=== PATIENT | female | born 1995 | race Caucasian/White ===

== ENCOUNTER 2017-08-03 20:20 | Day surgery (SDC) | payer OTHER ==
--- NOTE | 2017-08-03 21:28 | PDOC.LDHP ---
Labor and Delivery H&P Chief complaint: contractions HPI: 21 y/o at 38w4d, patient of Dr. Gera Fabian, presents with contractions every 20 mins for the last few hours. Denies VB, LOF. +FM but less than usual. ROS neg for HEENT, CV, pulm, GI, , neuro, psych, skin, musculoskeletal, or constitutional symptoms other than mentioned above. Due date: 08/13/17 OB History Details: Blighted ovum Current complications: none Past Medical History: None Current medications: pre- vitamins Previous surgical history: none Allergies/Adverse Reactions: Allergies Allergy/AdvReac Type Severity Reaction Status Date / Time No Known Allergies Allergy Verified 05/09/17 19:53 Social history: none - Physical Exam General: NAD, resting Lungs: nonlabored breathing Abdomen: gravid Extremeties: no edema FHT: category 1 (130s, mod variability, + accels, no decels) [place] contractions every: None - Vaginal Exam cm dilated: 0 Effacement: 0% Station: -3 - Assessment 21 y/o at 38w4d with no e/o active labor. status reassuring with reactive NST. - Plan -: D/c home with precautions. Advised to keep all appointments.
== END 2017-08-03 21:05 | disposition home or self-care (01) ==
LOC: L&D/OP 20:20
PROVIDERS: ATTEND Family Medicine
DX: O47.1 False labor at or after 37 completed weeks of gestation (principal); Z3A.38 38 weeks gestation of pregnancy; Z79.82 Long term (current) use of aspirin; Z79.899 Other long term (current) drug therapy

== ENCOUNTER → 2017-08-06 | Day surgery (SDC) | payer OTHER ==
[~2017-08-06] MED LIST: FLU VACC QS2017-18 36 mo. & older 0.5 ML SYRINGE IM ONE
[2017-08-06 23:58] VITALS: BMI 25.0
[2017-08-07 00:27] LABS: Amnisure Test No Membranes Rupture (No Rupture)
--- NOTE | 2017-08-07 00:41 | PDOC.EVN ---
Event Note - Event Note Event Note: L&D Triage Patient of Gera PENAA 39 weeks HPI: 21 yo at 39 weeks with possible leakage, small amount. No gush of fluid, no VB. Good FM. Hx of "Thalassemia minor. Review of Systems: complete and neg except as per HPI Past medical: Thal minor Surgical History: neg Ob History: Social History: neg X3 Physical: Vitals stable, afebrile NAD Abd soft, NT no evidence ROM grossly Amnisure negative CX: /-2; BOW palpable Monitors: NST Cat 1, few irregular ctx on tcoc Assessment: Threatened labor at term Plan: 1. no evidence ROM 2. is negative 3. Exam negative 4. OK for outpatient care
== END | disposition home or self-care (01) ==
LOC: L&D/OP 23:26
PROVIDERS: ATTEND Family Medicine
DX: O47.1 False labor at or after 37 completed weeks of gestation (principal); Z79.899 Other long term (current) drug therapy; Z3A.39 39 weeks gestation of pregnancy
CPT/HCPCS: 84112; 99283

== ENCOUNTER 2017-08-20 12:01 | Inpatient (IN) | payer OTHER ==
[~2017-08-20 12:01] MED LIST changes: +Bupivacaine/Epinephrine 0.25% 30 ML VIAL ONE; -FLU VACC QS2017-18 36 mo. & older 0.5 ML SYRINGE IM ONE
[2017-08-20 12:23] VITALS: BMI 25.7
[2017-08-20] MEDS: Lactated Ringer's 1,000 ML IV SCH ×2 (12:53→17:01)
[2017-08-20] MEDS ORDERED: Promethazine HCl 25 MG/ML VIAL IM PRN ×3 (13:35→23:11)
[2017-08-20] MEDS ORDERED: HYDROcodone/Acetaminophen 5/325 mg Tablet PO PRN (13:35)
[2017-08-20] MEDS ORDERED: Lidocaine 1% (PF) 30 ML VIAL SC PRN (13:35)
[2017-08-20] MEDS ORDERED: Ondansetron HCl/PF 4 MG/2 ML Vial IVP PRN ×4 (13:35→23:12)
[2017-08-20] MEDS ORDERED: Misoprostol 200 MCG TAB PR PRN (13:35)
[2017-08-20] MEDS ORDERED: LR / Pitocin 40 units/1000 ml 1,000 ML IV PRN (13:35)
[2017-08-20] MEDS ORDERED: Acetaminophen 500 MG TAB PO PRN (13:35)
[2017-08-20] MEDS ORDERED: Penicillin G Potassium 5 MILL.UNITS VIAL ONE (13:39)
[2017-08-20] MEDS ORDERED: LR 500 ML/Oxytocin 10 units 500 ML IV SCH (13:45)
[2017-08-20] MEDS ORDERED: Penicillin G Potassium 5 MILL.UNITS in Sodium Chloride 0.9% 100 ML IVPB SCH (13:45)
[2017-08-20 13:55] LABS: Hemoglobin 10.3 g/dL (12.0-16.0); Mean Corpuscular HGB CONC 33.2 g/dL (32.0-36.0); Mean Corpuscular Hemoglobin 20.5 pg (25.0-35.0); Mean Corpuscular Volume 61.9 fl (77.0-87.0); Mean Platelet Volume 9.6 fL (7.4-10.4); Platelet Count 268 thou/uL (130-400); RBC Distribution Width 14.2 % (11.5-14.5); Red Blood Cell (RBC) Count 5.03 mill/uL (4.00-5.20); White Blood Cell (WBC) Count 16.4 thou/uL (4.8-10.8)
[2017-08-20 14:20] LABS: HBSAg Index 0.39 S/CO (0-0.99); Hep B Surf Ag Non-Reactive S/CO (NonReactive); Syphilis Antibody Nonreactive (Nonreactive); Syphilis Antibody Index 0.05 S/CO (<1.00 Non-Reactive)
[2017-08-20] MEDS ORDERED: Fentanyl 4 mcg/Marc 0.1% Cadd 100 ML ONE (18:15)
[2017-08-20] MEDS: Penicillin G 2.5 MILL.units 2.5 MILL.UNITS in Premix Bag 1 BAG IVPB SCH (18:40)
[2017-08-20] MEDS ORDERED: diphenhydrAMINE 50 MG/ML VIAL IVP PRN ×2 (19:36→23:11)
[2017-08-20] MEDS ORDERED: Lactated Ringer's 500 ML IV PRN (19:36)
[2017-08-20] MEDS ORDERED: Acetaminophen 325 MG TAB PO PRN (19:36)
[2017-08-20] MEDS ORDERED: Naloxone HCl 0.4 mg/ml Vial IVP PRN ×4 (19:36→23:11)
[2017-08-20] MEDS ORDERED: Eucerin (Mineral Oil/Petrolatum,White) 30 gm Jar TOP PRN ×2 (19:36→23:11)
[2017-08-20] MEDS ORDERED: Communication Order-Pharmacy FS SCH ×2 (19:45→23:15)
[2017-08-20] MEDS ORDERED: Fentanyl 4mcg/Marcaine 0.1% Cassette 100 ML EPIDURAL SCH (19:45)
[2017-08-20] MEDS ORDERED: Bicitra 30 ML UDCUP ONE (22:29)
[2017-08-20] MEDS ORDERED: CEFAZOLIN/Water 2 GM/20 ML SYRINGE ONE (22:30)
[2017-08-20] MEDS ORDERED: Lidocaine 2% PF 5 ML VIAL ONE (22:32)
[2017-08-20] MEDS ORDERED: Morphine PF 1 MG/ML SYR ONE (22:32)
[2017-08-20] MEDS ORDERED: Oxytocin 10 UNITS/ML VIAL ONE (22:32)
[2017-08-20] MEDS ORDERED: Ketorolac Tromethamine 30 MG/ML VIAL IVP PRN (23:11)
[2017-08-20] MEDS ORDERED: Promethazine HCl 25 MG SUPP PR PRN (23:11)
[2017-08-20] MEDS ORDERED: Naloxone HCl 0.4 mg/ml Vial IV PRN (23:11)
[2017-08-20] MEDS ORDERED: Meperidine HCl/PF 25 MG/ML VIAL SLOW IVP PRN (23:12)
[2017-08-20] MEDS ORDERED: Ketorolac Tromethamine 30 MG/ML VIAL IVP SCH (23:15)
[2017-08-20] MEDS ORDERED: Bupivacaine/Epinephrine 0.5% 10 ML VIAL ONE (23:16)
[2017-08-20 23:24] LABS: Base Excess (BEa) -3.2 mEq/L (0 (+/-) 2.5)
--- NOTE | 2017-08-20 23:25 | PDOC.EVN ---
Event Note - Event Note Event Note: CS Assist note: I was asked by Dr Higginbotham to assist him with a primary CS for persistent Class 2 FHRT and abnormal labor curve. I assisted with a primary LTCS via pfannestiel. BENNY in use. Apgras were 8 and 9. Gas and placenta sent for med staining. NICU present. No complications. Marcaine instilled onto the wound (10ml pour) due to patient discomfort at fascial closure. Macario O retractor used for CS. Start at 2259 (approx) End at 2317 (approx) Primary Surgeon: Neftaly, Jonathan Ren. Primary LTCS Complications: none Counts correct
--- NOTE | 2017-08-21 00:02 | OP ---
PREOPERATIVE DIAGNOSES: 1. A 41-week intrauterine . 2. Failure to progress. 3. Meconium. 4. Nonreassuring heart tones. POSTOPERATIVE DIAGNOSES: 1. A 41-week intrauterine . 2. Failure to progress. 3. Meconium. 4. Nonreassuring heart tones. 5. Occiput posterior. PROCEDURE: Primary low transverse section. ANESTHESIA: Epidural. PROCEDURE: This is a 21-year-old white female, , was taken to the operating room. Placed in th e supine position. The abdomen prepped and draped sterilely, Pfannenstiel incision was made. Subcut aneous was dissected down to fascia. Fascia was opened without incident. Peritoneum was opened by b angel dissection. Macario O ring was placed. A low transverse uterine incision was made. Moderate me conium fluid was noted. Baby did breathe and cry vigorously upon delivery. Delivered placenta, 3-ve ssel intact spontaneously. The baby's cord was clamped and cut. Cord gases were obtained. Benjamin team was present. Repaired the uterus in 1 layer of #1 Monocryl. Hemostasis was adequate. Abdomen was evacuated of all clots. The Macario O was removed. Repaired the peritoneum with 2-0 chromic. Repair ed the fascia with 0 Vicryl and the skin with nolan. Estimated blood loss was 600 mL. Mother and baby did very well.
[2017-08-21] MEDS ORDERED: Methylergonovine 0.2 MG/ML VIAL IM PRN (02:01)
[2017-08-21] MEDS ORDERED: Adacel (T-DAP) 0.5 ML VIAL IM ONE (02:01)
[2017-08-21] MEDS ORDERED: diphenhydrAMINE 25 MG CAP PO PRN (02:01)
[2017-08-21] MEDS ORDERED: LR w/ Pitocin 40 units/1000 ML BAG IV SCH (02:01)
[2017-08-21] MEDS ORDERED: Lanolin Ointment 7 GM TUBE TOP PRN (02:01)
[2017-08-21] MEDS: ePHEDrine/0.9% NaCl/PF SYRINGE 50 mg/10 ml SLOW IVP SCH ×2 (03:08→17:52)
[2017-08-21] MEDS: Penicillin G 2.5 MILL.units 2.5 MILL.UNITS in Premix Bag 1 BAG IVPB SCH (03:13)
[2017-08-21 06:19] LABS: Hemoglobin 7.7 g/dL (12.0-16.0); Mean Corpuscular Hemoglobin 19.8 pg (25.0-35.0); Mean Corpuscular Volume 61.9 fl (77.0-87.0); Mean Platelet Volume 11.9 fL (7.4-10.4); Platelet Count 224 thou/uL (130-400); RBC Distribution Width 13.9 % (11.5-14.5); Red Blood Cell (RBC) Count 3.87 mill/uL (4.00-5.20); White Blood Cell (WBC) Count 23.3 thou/uL (4.8-10.8)
[2017-08-21] MEDS: Prenatal Vitamin 1 TAB PO SCH (08:58)
[2017-08-21] MEDS: Ferrous Sulfate 325 MG TAB PO SCH ×2 (08:58→16:28)
[2017-08-21] MEDS ORDERED: Morphine 4 MG/ML VIAL SLOW IVP PRN (10:48)
[2017-08-21] MEDS ORDERED: Morphine 10 MG/ML VIAL SLOW IVP PRN (11:05)
[2017-08-21] MEDS ORDERED: Sodium Chloride 0.9% 10 ML ONE (11:06)
[2017-08-21] MEDS: Ibuprofen 800 MG TAB PO SCH ×2 (14:10→22:29)
[2017-08-21] MEDS ORDERED: HYDROcodone/Acetaminophen 5/325 mg Tablet PO PRN (14:39)
[2017-08-21] MEDS: HYDROcodone/Acetaminophen 5/325 mg Tablet PO PRN (17:55)
[2017-08-22] MEDS: HYDROcodone/Acetaminophen 5/325 mg Tablet PO PRN (00:54)
[2017-08-22] MEDS: Ibuprofen 800 MG TAB PO SCH ×3 (05:54→21:48)
[2017-08-22] MEDS ORDERED: Ibuprofen 800 MG TAB PO SCH (06:00)
[2017-08-22] MEDS: Prenatal Vitamin 1 TAB PO SCH (09:05)
[2017-08-22] MEDS: Ferrous Sulfate 325 MG TAB PO SCH ×2 (09:06→16:52)
--- NOTE | 2017-08-23 06:06 | PDOC.PP ---
Post Progress Note Post Day #: 3 Subjective: Doing well. PO intake tolerated: yes Flatus: yes Ambulation: yes Vital Signs (12 hours) Temp Pulse Resp BP 08/22/17 20:15 98.6 F 93 18 134/84 08/22/17 18:17 98.1 F 80 20 120/74 Weight Weight 145 lb - Physical Examination General: NAD Cardiovascular: no m/r/g Respiratory: clear to auscultation bilaterally Abdominal: + bowel sounds Extremities: negative homans (B) Skin: CS incision dry & intact (nolan in place) Psychiatric: A&Ox3 Result Diagrams: 08/21/17 05:34 Additional Labs: Post Labs Hep Bs Antigen Non-Reactive S/CO (NonReactive) 08/20/17 12:55 (1) Delivery by emergency Code(s): O82 - ENCOUNTER FOR DELIVERY WITHOUT INDICATION Status: Acute - Assessment/Plan POD 3. Patient doing well. Passing gas. Incision C/D/I. OK for discharge home with staple removal Friday or Friday next week. patient seen for Dr Fabian.
--- NOTE | 2017-08-23 06:08 | PDOC.EVN ---
Event Note - Event Note Event Note: DISCHARGE NOTE Patient s/p primary LTCS by Dr Fabian with me as marketing assistant retail division. Discharged home on POD 3. Viktor out next Friday or Friday. Home with Motrin/Tylenol 3 prn
[2017-08-23] MEDS: Ibuprofen 800 MG TAB PO SCH (06:09)
[2017-08-23 08:31] VITALS: BP 139/90; TEMP 98
[2017-08-23] MEDS: Ferrous Sulfate 325 MG TAB PO SCH (09:28)
[2017-08-23] MEDS: Prenatal Vitamin 1 TAB PO SCH (09:29)
== END 2017-08-23 14:00 | disposition home or self-care (01) | DRG 765 ==
LOC: L&D 12:01 → 3SW 08-21 02:01
PROVIDERS: ADMIT Family Medicine; ATTEND Family Medicine
PROC: 10D00Z1 Extraction of Products of Conception, Low, Open Approach (ICD-10-PCS; principal; 2017-08-21)
PROC: 3E0T3BZ Introduction of Anesthetic Agent into Peripheral Nerves and Plexi, Percutaneous Approach (ICD-10-PCS; 2017-08-21)
PROC: 4A1HXCZ Monitoring of Products of Conception, Cardiac Rate, External Approach (ICD-10-PCS; 2017-08-21)
DX: O48.0 Post-term pregnancy (principal); O63.9 Long labor, unspecified; O77.0 Labor and delivery complicated by meconium in amniotic fluid; O76 Abnormality in fetal heart rate and rhythm complicating labor and delivery; Z3A.41 41 weeks gestation of pregnancy; Z37.0 Single live birth
CPT/HCPCS: 36415; 51702; 82805; 85027; 86780; 87340; 88307; A4216; J1885; J2001; J2270; J2274; J2405; J2540; J2590; J3490; J7050; J7120